=== PATIENT | female | born 1990 | race Caucasian/White ===

== ENCOUNTER 2017-11-14 12:39 | Outpatient (CLI) | payer BC ==
--- NOTE | 2017-11-14 16:03 | ULT ---
ULTRASOUND OBSTETRICAL COMPLETE: 11/14/17 HISTORY: 27-year-old female in second trimester. Evaluate anatomy, size and dates. FINDINGS: number: Martinez. lie: Breech. Maternal cervix: 5.5 cm long and closed. Placenta: Anterior. No placental previa. Amniotic fluid volume: Subjectively normal. DAVIE not measured. heart rate: 155 bpm The following anatomy is visualized, with no evidence of anomalies: Head, lateral ventricles, cerebellum, nose and lips, spine, upper limbs, lower limbs, four chamber he art, umbilical cord, cord insertion, stomach, kidneys, and bladder. biometry: Head circumference (HC): 16.5 cm 19w 1d Biparietal diameter (BPD): 4.3 cm 19w 0d Abdominal circumference (AC): 13.6 cm 19w 0d Femur length (FL): 2.9 cm 19w 0d Average ultrasound age (AUA): 19w 0d Estimated date of delivery (JAYDA): 04/10/18 Estimated weight (EFW): 271 g +/- 40 g (0 lb. 10 oz +/- 1 oz). IMPRESSION: 1. Live second trimester intrauterine gestation. 2. Estimated gestational age of 19 weeks, 0 days. 3. Breech lie. 4. No anatomical abnormalities. elena [] POS: [place]
== END 2017-11-14 12:40 | disposition home or self-care (01) ==
LOC: ULT 12:39
PROVIDERS: ATTEND Family Medicine
DX: Z34.92 Encounter for supervision of normal pregnancy, unspecified, second trimester (principal); Z3A.19 19 weeks gestation of pregnancy
CPT/HCPCS: 76805

== ENCOUNTER 2018-03-18 12:40 | Day surgery (SDC) | payer OTHER ==
[2018-03-18 12:53] VITALS: BP 112/60; TEMP 98.5
[2018-03-18 12:54] VITALS: BMI 27.3
[2018-03-18] MEDS ORDERED: Promethazine HCl 25 MG/ML VIAL IM/IV PRN (13:06)
--- NOTE | 2018-03-18 13:08 | PDOC.LDHP ---
Labor and Delivery H&P HPI: @[id number] Location: L&D Triage Patient of Dr Gunn CC: contractions Patient is a 27 yo at 36 weeks 4 days here for irregular contraction/ No recent coitus, no LOF, no VB. Denies issues. Past HX Depression and migraines. No HAs now. Good FM review of Systems: Complete ROS performed and as per HPI Current gestational age (weeks): 36 (4 days) Due date: 04/11/18 Dating criteria: last menstrual period Grav: 1 Para: 0 Current complications: none Abnormal US findings: No Current medications: pre- vitamins Previous surgical history: other (Appy, ear surgeries) Social history: none - Physical Exam Vital signs reviewed and normal: yes (120/60 88 afebrile) General: NAD Heart: RRR Lungs: CTAB Abdomen: gravid FHT: category 1 [place] contractions every: every 2-4 minutes - Vaginal Exam cm dilated: 1 (BOWI) Effacement: 25% Station: -3 - Assessment Threatened labor at 36 weeks 4 days - Plan Plan: observation in L&D (Offer pain medication Hydrate and sedate We will observe in L&D for 2 hours Admit and steroids if cervical change)
[2018-03-18] MEDS ORDERED: Lactated Ringer's 1,000 ML IV SCH (13:15)
--- NOTE | 2018-03-18 15:07 | PDOC.EVN ---
Event Note - Event Note Event Note: Follow up exam: Patient still unchanged after 2 hours at 1cm. BOWI. No evidenec maternal- compromise. BPs ok. We will release home with close follow up with Dr Gunn.Patient seen at bedside.
== END 2018-03-18 15:35 | disposition home or self-care (01) ==
LOC: L&D/OP 12:40
PROVIDERS: ATTEND Family Medicine
DX: O47.03 False labor before 37 completed weeks of gestation, third trimester (principal); Z3A.36 36 weeks gestation of pregnancy; Z79.899 Other long term (current) drug therapy

== ENCOUNTER 2018-04-02 20:12 | Inpatient (IN) | payer OTHER ==
[2018-04-02 20:47] VITALS: BMI 27.4
[2018-04-02] MEDS ORDERED: Ondansetron HCl/PF 4 MG/2 ML Vial IVP PRN (21:19)
[2018-04-02] MEDS ORDERED: Promethazine HCl 25 MG/ML VIAL IM PRN (21:19)
[2018-04-02] MEDS ORDERED: Butorphanol Tartrate 1 MG/ML VIAL SLOW IVP PRN (21:19)
[2018-04-02] MEDS ORDERED: Acetaminophen 500 MG TAB PO PRN (21:19)
[2018-04-02] MEDS ORDERED: Misoprostol 200 MCG TAB RC PRN (21:30)
[2018-04-02] MEDS ORDERED: HYDROcodone/Acetaminophen 5/325 mg Tablet PO PRN (21:30)
[2018-04-02] MEDS ORDERED: NS / Oxytocin 40 units/1000ml 1,000 ML IV SCH (21:30)
[2018-04-02] MEDS ORDERED: NS w/ Oxytocin 10 units 500 ML IV SCH ×2 (21:30)
[2018-04-02] MEDS ORDERED: Ibuprofen 800 MG TAB PO PRN (21:30)
[2018-04-02] MEDS ORDERED: Carboprost 250 MCG/ML AMP IM PRN (21:30)
[2018-04-02] MEDS ORDERED: Methylergonovine 0.2 MG/ML VIAL IM PRN (21:30)
[2018-04-02] MEDS ORDERED: Lidocaine 1% (PF) 30 ML VIAL SC PRN (21:30)
[2018-04-02] MEDS: Lactated Ringer's 1,000 ML IV SCH (21:40)
[2018-04-02 22:23] LABS: Hemoglobin 12.5 g/dL (12.0-16.0); Mean Corpuscular HGB CONC 34.8 g/dL (32.0-36.0); Mean Corpuscular Hemoglobin 33.9 pg (27.0-31.0); Mean Corpuscular Volume 97.6 fl (81.0-99.0); Mean Platelet Volume 7.9 fL (7.4-10.4); Platelet Count 224 thou/uL (130-400); RBC Distribution Width 12.1 % (11.5-14.5); Red Blood Cell (RBC) Count 3.69 mill/uL (4.20-5.40); White Blood Cell (WBC) Count 11.5 thou/uL (4.8-10.8)
[2018-04-03 00:02] LABS: Syphilis Antibody Nonreactive (Nonreactive); Syphilis Antibody Index 0.03 S/CO (<1.00 Non-Reactive)
[2018-04-03 00:37] LABS: HBSAg Index 0.17 S/CO (0-0.99); Hep B Surf Ag Non-Reactive S/CO (NonReactive)
[2018-04-03] MEDS: Lactated Ringer's 1,000 ML IV SCH ×3 (04:59→09:51)
[2018-04-03] MEDS ORDERED: DISCONTINUE ALL PREVIOUS NARCOTICS FS SCH (07:15)
[2018-04-03] MEDS: Bupivacaine 0.5% 20 ML, fentaNYL Citrate/PF 400 MCG in Sodium Chloride 0.9% 72 ML EPIDURAL SCH ×2 (07:56→14:25)
[2018-04-03] MEDS ORDERED: diphenhydrAMINE 50 MG/ML VIAL IVP PRN (07:57)
[2018-04-03] MEDS ORDERED: Lactated Ringer's 500 ML IV PRN (07:57)
[2018-04-03] MEDS ORDERED: Naloxone HCl 0.4 mg/ml Vial IVP PRN ×2 (07:57)
[2018-04-03] MEDS ORDERED: Eucerin (Mineral Oil/Petrolatum,White) 30 gm Jar TOP PRN (07:57)
[2018-04-03] MEDS ORDERED: ePHEDrine/0.9% NaCl/PF SYRINGE 50 mg/10 ml SLOW IVP PRN (07:57)
[2018-04-03] MEDS ORDERED: Promethazine HCl 25 MG/ML VIAL IM PRN (07:57)
[2018-04-03] MEDS ORDERED: Acetaminophen 325 MG TAB PO PRN (07:57)
[2018-04-03] MEDS ORDERED: Ondansetron HCl/PF 4 MG/2 ML Vial IVP PRN (07:57)
[2018-04-03] MEDS ORDERED: Fentanyl 4mcg/Marcaine 0.1% Cassette 100 ML EPIDURAL SCH (08:00)
[2018-04-03] MEDS ORDERED: Communication Order-Pharmacy FS SCH (08:00)
[2018-04-03] MEDS ORDERED: Lidocaine 2% PF 5 ML VIAL ONE (11:11)
--- NOTE | 2018-04-03 17:56 | PDOC.EVN ---
Event Note - Event Note Event Note: CTSP by Nursing Staff. Concerned re: vulvar swelling. S/p with repair of MLE. PEx; vulva swollen bilaterally. No hematoma seen. Plan: Cont. ice pack and observe. I have asked Nursing to d/w Dr. Gunn. BZ
[2018-04-03] MEDS ORDERED: NS / Oxytocin 40 units/1000ml 1,000 ML IV SCH (19:13)
[2018-04-03] MEDS ORDERED: Milk Of Magnesia 30 ML UDCUP PO PRN (19:13)
[2018-04-03] MEDS ORDERED: Bisacodyl 10 MG SUPP PR PRN (19:13)
[2018-04-03] MEDS ORDERED: Preparation H Ointment 28 GM TUBE PR PRN (19:13)
[2018-04-03] MEDS ORDERED: Benzocaine/Menthol 20-0.5% 60 ML CAN TOP PRN (19:13)
[2018-04-03] MEDS: HYDROcodone/Acetaminophen 5/325 mg Tablet PO PRN (20:47)
[2018-04-03] MEDS: Docusate Calcium (SURFAK) 240 MG CAP PO SCH (21:36)
[2018-04-03] MEDS: Ferrous Sulfate 325 MG TAB PO SCH (23:28)
[2018-04-04] MEDS: Ibuprofen 800 MG TAB PO SCH ×4 (02:02→21:43)
[2018-04-04] MEDS: HYDROcodone/Acetaminophen 5/325 mg Tablet PO PRN ×2 (05:55→13:18)
[2018-04-04] MEDS: Docusate Calcium (SURFAK) 240 MG CAP PO SCH ×2 (08:46→21:43)
[2018-04-04] MEDS: Ferrous Sulfate 325 MG TAB PO SCH ×2 (08:46→12:35)
[2018-04-05] MEDS: HYDROcodone/Acetaminophen 5/325 mg Tablet PO PRN ×3 (00:07→11:26)
[2018-04-05] MEDS: Ibuprofen 800 MG TAB PO SCH (05:27)
[2018-04-05] MEDS: Ferrous Sulfate 325 MG TAB PO SCH (07:15)
[2018-04-05 08:25] VITALS: BP 111/65; TEMP 97.9
[2018-04-05] MEDS: Docusate Calcium (SURFAK) 240 MG CAP PO SCH (08:25)
[2018-04-05] MEDS ORDERED: Sodium Chloride 0.9% 10 ML ONE (12:11)
== END 2018-04-05 12:01 | disposition home or self-care (01) | DRG 775 ==
LOC: L&D/OP 20:12 → L&D 21:20 → 3SE 04-03 19:27
PROVIDERS: ADMIT Family Medicine; ATTEND Family Medicine
PROC: 0KQM0ZZ Repair Perineum Muscle, Open Approach (ICD-10-PCS; principal; 2018-04-03)
PROC: 10E0XZZ Delivery of Products of Conception, External Approach (ICD-10-PCS; 2018-04-03)
PROC: 10907ZC Drainage of Amniotic Fluid, Therapeutic from Products of Conception, Via Natural or Artificial Opening (ICD-10-PCS; 2018-04-03)
DX: O70.1 Second degree perineal laceration during delivery (principal); Z37.0 Single live birth; Z3A.38 38 weeks gestation of pregnancy
CPT/HCPCS: 51702; 85027; 86780; 86850; 86900; 86901; 87340; 99285; A4216; J2001; J2405; J3010; J3490; J7050

== ENCOUNTER 2020-04-16 02:10 | Day surgery (SDC) | payer BC ==
[2020-04-16] MEDS ORDERED: hydrALAZINE 20 MG/ML VIAL SLOW IVP PRN (03:13)
--- NOTE | 2020-04-16 03:15 | PDOC.FPROB ---
FMR OB H&P: HPI - History of Present Illness Chief Complaint: ctx Indentification: 29 y/o @ 36.4 WGA History of Present Illness: Pt reports she started nita at 2030 last night. She reports they have been getting closer together and more painful and are now every 2 minutes apart. She rates them as a 8/10 and they are worse with standing. Pt denies LOF, VB, d/c. +FM Primary Care Physician: Dr. Gunn FMR OB H&P: Current - Care Course/Complications: She has been seeing [facility] due to the baby's head measuring small. - OB Labs HIV: negative RPR: negative HepBsAg: negative Rubella: immune Gonorrhea: negative Chlamydia: negative GBS: negative FMR OB H&P: History - Past Medical History PMH: Denies - OB History OB History: 1 uncomplicated term - Surgical History Sx History: appendectomy multiple ear surgeries - Social History Social History: Denies EtOH, drug, tobacco use - Family History Family History: Denies FMR OB H&P: Medications - Current Home Medications: Medication Instructions Recorded Confirmed Type Vit,Calc76/Iron/Folic 1 tab PO DAILY 04/02/18 04/16/20 History [Prenatabs Rx Tablet] Allergies/Adverse Reactions: Allergies Allergy/AdvReac Type Severity Reaction Status Date / Time No Known Allergies Allergy Verified 01/30/20 13:25 FMR OB H&P: ROS - Review of Systems General: denies: fever/chills, weight/appetite/sleep changes Eyes: denies: vision changes, double vision ENT: denies: nasal congestion, sore throat Cardiovascular: denies: chest pain, edema Respiratory: denies: cough, shortness of breath Gastrointestinal: denies: nausea, vomiting, diarrhea Genitourinary (Female): reports: contractions. denies: dysuria, hematuria, vaginal discharge, vaginal bleeding Musculoskeletal: denies: pain, swelling Neurologic: denies: numbness, weakness Integumentary: denies: itching, rash Breast: denies: lumps, bumps Psychological: denies: depression, anxiety FMR OB H&P: Vital Signs - Maternal Vital signs: BP 114/62, HR 81, RR 18 - Heart Tones Baseline: 145 Variability: moderate Acceleration: present Deceleration: absent Category: category 1 [place] contractions every: 2 min FMR OB H&P: Physical Exam - Physical Exam General: NAD, awake, alert and oriented HEENT: normocephalic and atraumatic, MMM, conjunctiva clear, grossly normal vision, grossly normal hearing Neck: supple, no LAD Heart: pulses present, no edema General: no respiratory distress Abdomen: soft, gravid, non-tender, other (moderately palpable contractions) Musculoskeletal: normal gait and station, pulses present Neurological: no focal deficit Skin: good tugor, capillary refill <2 seconds Lymphatic: no unusual bruising or bleeding, no purpura Psychiatric: intact recent and remote memory, good judgement and insight - Pelvic Exam SVE: 01/04/2/firm/anterior by nurse Chloé FMR OB H&P: A/P - Problem List (1) Threatened premature labor Current Visit: No Status: Acute Code(s): O47.00 - FALSE LABOR BEFORE 37 COMPLETED WEEKS OF GEST, UNSP TRI Disposition: -Will PO hydrate patient -Monitor FHT -Recheck cervix in 2 hours and if any changes will admit to L&D and notify Dr. Gunn Discussion: Date/Time: 04/16/205 This H&P was discussed with Dr. Schneider who agrees with the above documentation and plan. Signature: Yolanda Carter MD, PGY-3
--- NOTE | 2020-04-16 05:21 | PDOC.BPN ---
- Brief Progress Note Pt made some cervical change after 2 hours to /2 Will continue to monitor and recheck in another [address] Schneider who agrees with the plan.
--- NOTE | 2020-04-16 07:46 | PDOC.BPN ---
- Brief Progress Note Pt recheck unchanged. Contractions have spaced out to q10min and pt reports pain scale as 1/10 now. Gave strict labor precautions and will d/c home. f/u for routine care with Dr. Gunn.
== END 2020-04-16 07:55 | disposition home or self-care (01) ==
LOC: L&D/OP 02:10 → EDBD 02:10 → L&D/OP 07:55
PROVIDERS: ATTEND Family Medicine
DX: O47.03 False labor before 37 completed weeks of gestation, third trimester (principal); Z3A.36 36 weeks gestation of pregnancy
CPT/HCPCS: 99283

== ENCOUNTER 2020-05-07 22:05 | Inpatient (IN) | payer BC ==
[2020-05-07 22:16] VITALS: BMI 27.1
[2020-05-07] MEDS ORDERED: hydrALAZINE 20 MG/ML VIAL SLOW IVP PRN (23:26)
[2020-05-07] MEDS ORDERED: Promethazine HCl 25 MG/ML VIAL IM PRN (23:27)
[2020-05-07] MEDS ORDERED: Morphine 4 MG/ML VIAL SLOW IVP SCH (23:30)
[2020-05-08] MEDS: Lactated Ringer's 1,000 ML IV SCH ×2 (01:02→02:51)
[2020-05-08] MEDS ORDERED: hydrALAZINE 20 MG/ML VIAL SLOW IVP PRN ×2 (01:58→07:23)
[2020-05-08] MEDS ORDERED: Acetaminophen 500 MG TAB PO PRN (01:58)
[2020-05-08] MEDS ORDERED: Promethazine HCl 25 MG/ML VIAL IM PRN ×2 (01:58→02:44)
[2020-05-08] MEDS ORDERED: Butorphanol Tartrate 1 MG/ML VIAL SLOW IVP PRN (01:58)
[2020-05-08] MEDS ORDERED: Ondansetron PF 4 MG/2 ML Vial IVP PRN ×2 (01:58→02:44)
[2020-05-08] MEDS ORDERED: Ibuprofen 800 MG TAB PO PRN (02:00)
[2020-05-08] MEDS ORDERED: NS w/ Oxytocin 10 units 500 ML IV SCH ×2 (02:00)
[2020-05-08] MEDS ORDERED: Lidocaine 1% (PF) 30 ML VIAL SC PRN (02:00)
[2020-05-08] MEDS ORDERED: Methylergonovine 0.2 MG/ML VIAL IM PRN (02:00)
[2020-05-08] MEDS ORDERED: Misoprostol 200 MCG TAB RC PRN (02:00)
[2020-05-08 02:02] LABS: Hemoglobin 12.4 g/dL (12.0-16.0); Mean Corpuscular HGB CONC 34.6 g/dL (32.0-36.0); Mean Corpuscular Hemoglobin 33.9 pg (27.0-31.0); Mean Corpuscular Volume 97.8 fL (78.0-98.0); Mean Platelet Volume 8.9 fL (7.4-10.4); Platelet Count 186 thou/uL (130-400); RBC Distribution Width 12.4 % (11.5-14.5); Red Blood Cell (RBC) Count 3.67 mill/uL (4.20-5.40); White Blood Cell (WBC) Count 11.2 thou/uL (4.8-10.8)
[2020-05-08] MEDS ORDERED: Fentanyl 4 mcg/Bup 0.1% Cadd 100 ML ONE (02:07)
[2020-05-08 02:36] LABS: HBSAg Index 0.12 S/CO (0-0.99); Hep B Surf Ag Non-Reactive S/CO (NonReactive)
[2020-05-08] MEDS ORDERED: Acetaminophen 325 MG TAB PO PRN (02:44)
[2020-05-08] MEDS ORDERED: EPHEDRINE 25 MG/5 ML SYRINGE SLOW IVP PRN (02:44)
[2020-05-08] MEDS ORDERED: diphenhydrAMINE 50 MG/ML VIAL IVP PRN (02:44)
[2020-05-08] MEDS ORDERED: Naloxone HCl 0.4 mg/ml Vial IVP PRN ×2 (02:44)
[2020-05-08] MEDS ORDERED: Lactated Ringer's 500 ML IV PRN (02:44)
[2020-05-08] MEDS ORDERED: Fentanyl 4 mcg/Bupivacaine 0.1% Cassette 100 ML EPIDURAL SCH (02:45)
[2020-05-08] MEDS ORDERED: Communication Order-Pharmacy FS SCH (02:45)
[2020-05-08] MEDS ORDERED: NS / Oxytocin 40 units/1000ml 1,000 ML ONE (04:40)
[2020-05-08] MEDS ORDERED: Lidocaine 1% (PF) 30 ML VIAL ONE (04:40)
[2020-05-08 04:50] LABS: Syphilis Antibody Nonreactive (Nonreactive); Syphilis Antibody Index 0.02 S/CO (<1.00 Non-Reactive)
[2020-05-08] MEDS: NS / Oxytocin 40 units/1000ml 1,000 ML IV SCH ×2 (04:56→05:40)
--- NOTE | 2020-05-08 05:13 | PDOC.OPDEL ---
OB Operative/Delivery Note Delivery Dr/Surgeon: Luis A Assist: none Pre-Delivery Diagnosis: active labor Procedure/Post Delivery Dx: spontaneous vaginal delivery (Head OA, mouth and nares bulb suctioned, no nuchal cord, shoulders and body easily followed. Vigorous cry.) Anesthesia: epidural - Findings A Sex: female - 1 min: 9 - 5 min: 9 - Additional Findings/Plan Placenta delivered: spontaneous Repaired Obstetrical Laceration: none Estimated blood loss: 350 Post delivery plan: routine recovery
[2020-05-08] MEDS ORDERED: Bisacodyl 10 MG SUPP PR PRN (07:23)
[2020-05-08] MEDS ORDERED: NS / Oxytocin 40 units/1000ml 1,000 ML IV SCH (07:23)
[2020-05-08] MEDS ORDERED: Lanolin Ointment 7 GM TUBE TOP PRN (07:23)
[2020-05-08] MEDS ORDERED: diphenhydrAMINE 25 MG CAP PO PRN (07:23)
[2020-05-08] MEDS ORDERED: HYDROcodone/Acetaminophen 5/325 mg Tablet PO PRN (07:23)
[2020-05-08] MEDS ORDERED: Milk Of Magnesia 30 ML UDCUP PO PRN (07:23)
[2020-05-08] MEDS: Ibuprofen 800 MG TAB PO SCH ×2 (09:39→17:58)
[2020-05-08] MEDS: Docusate Calcium (SURFAK) 240 MG CAP PO SCH (09:39)
[2020-05-08] MEDS: Ferrous Sulfate 325 MG TAB PO SCH ×2 (09:40→17:59)
[2020-05-09] MEDS: Ibuprofen 800 MG TAB PO SCH ×2 (00:19→09:42)
[2020-05-09] MEDS: Docusate Calcium (SURFAK) 240 MG CAP PO SCH ×2 (00:20→09:41)
[2020-05-09] MEDS: Ferrous Sulfate 325 MG TAB PO SCH (08:02)
--- NOTE | 2020-05-09 09:23 | PDOC.PP ---
Post Progress Note Post Day #: 1 Subjective: Doing well, no complaints, well, lochia normal. PO intake tolerated: yes Flatus: yes Ambulation: yes Vital Signs (12 hours) Temp Pulse Resp BP 05/09/20 04:45 98.0 F 66 16 111/63 05/09/20 00:15 97.8 F 71 16 101/57 L Weight Weight 153 lb - Physical Examination General: NAD Cardiovascular: no m/r/g, RRR Respiratory: clear to auscultation bilaterally, non-labored breathing Abdominal: + bowel sounds, lochia, no distention, appropriately TTP Extremities: negative homans (B) Neurological: no gross focal deficits Result Diagrams: 05/08/20 01:45 Additional Labs: Post Labs Blood Type O POSITIVE 05/08/20 01:45 Hep Bs Antigen Non-Reactive S/CO (NonReactive) 05/08/20 01:45 (1) Vaginal delivery Code(s): O80 - ENCOUNTER FOR FULL-TERM UNCOMPLICATED DELIVERY Status: Acute - Assessment/Plan Doing well Routine PP assisted today F/U in 6 weeks with me
[2020-05-09 09:46] VITALS: BP 111/60; TEMP 98.1
== END 2020-05-09 12:45 | disposition home or self-care (01) | DRG 807 ==
LOC: L&D/OP 22:05 → L&D 05-08 01:20 → 3SW 05-08 09:30
PROVIDERS: ADMIT Family Medicine; ATTEND Family Medicine
PROC: 10E0XZZ Delivery of Products of Conception, External Approach (ICD-10-PCS; principal; 2020-05-08)
DX: O80 Encounter for full-term uncomplicated delivery (principal); Z37.0 Single live birth; Z3A.39 39 weeks gestation of pregnancy
CPT/HCPCS: 36415; 51702; 85027; 86780; 86850; 86900; 86901; 87340; 99285; J2001; J2405; J2590

== ENCOUNTER 2022-12-26 14:41 | Outpatient (CLI) | payer BC | END 2022-12-26 14:42 | disposition home or self-care (01) | LOC: BICMAMMO 14:41 | PROVIDERS: ATTEND Nurse Practitioner Acute Care | DX: N63.21 Unspecified lump in the left breast, upper outer quadrant (principal); N64.89 Other specified disorders of breast; R11.2 Nausea with vomiting, unspecified | CPT/HCPCS: 77066; G0279 ==